=== PATIENT | female | born 1965 | race Caucasian/White ===

== ENCOUNTER → 2017-04-20 | Outpatient (CLI) | payer BC ==
[~2017-04-20] MED LIST: ADVIL200 MG PO; CALCIUM 500 MG1 EACH PO; CLARITIN,ALAVAR10 MG PO; FISH OIL 1,0001 EAC7 PO; FISH OIL OMEGA1 EAC1 PO; FLONASE ALLERG9.9 ML BOTH NARES; GLUCOSAMINE &1 EACH PO; IBUPROFEN200 M1 PO; IMITREX100 MG PO; KLONOPIN0.25 MG PO; LINZESS145 MCG PO; MIRALAX17 GM PO; MULTIPLE VITAM1 EAC4 PO; TRIPLE FLEX CA1 EACH PO; TUMS500 MG PO; TYLENOL REGULA325 MG PO; ULTRAM50 MG PO; VITAMIN C500 M1 PO; ZOLOFT100 MG PO
== END | disposition home or self-care (01) ==
LOC: CDC 14:45
DX: Z01.810 Encounter for preprocedural cardiovascular examination (principal); T81.89XA Other complications of procedures, not elsewhere classified, initial encounter; R94.31 Abnormal electrocardiogram [ECG] [EKG]
CPT/HCPCS: 93000

== ENCOUNTER 2017-04-21 11:25 | Day surgery (SDC) | payer BC ==
[~2017-04-21] VITALS: Ht 152.4 cm; Wt 52.2 kg
[~2017-04-21 11:25] MED LIST changes: -ULTRAM50 MG PO
[2017-04-21 12:03] VITALS: BP 124/75
[2017-04-21] MEDS ORDERED: ULTRAM50 MG PO ×2 (15:24→15:29)
[2017-04-21 17:30] VITALS: BP 91/55
[2017-04-21 18:54] VITALS: BP 96/55
== END 2017-04-21 19:06 | disposition home or self-care (01) ==
LOC: SDC
PROC: 0JC80ZZ Extirpation of Matter from Abdomen Subcutaneous Tissue and Fascia, Open Approach (ICD-10-PCS; principal; 2017-04-21)
DX: L92.3 Foreign body granuloma of the skin and subcutaneous tissue (principal); Z68.23 Body mass index [BMI] 23.0-23.9, adult
CPT/HCPCS: J0690; J1100; J2250; J2405; J3010; Q0175